=== PATIENT | female | born 1980 | race African-American/Black ===

== ENCOUNTER 2019-04-11 13:19 | Emergency (ER) | payer OTHER ==
[~2019-04-11] VITALS: Ht 170.2 cm; Wt 97.5 kg
[2019-04-11 13:35] VITALS: BP 146/77
[2019-04-11] MEDS ORDERED: IBUPROFEN 600 MG TABLET. PO ONE (14:30)
[2019-04-11] MEDS ORDERED: ORPH-16 PO (15:23)
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
== END 2019-04-11 15:32 | disposition home or self-care (01) ==
LOC: ER 13:19
DX: S39.012A Strain of muscle, fascia and tendon of lower back, initial encounter (principal); S80.11XA Contusion of right lower leg, initial encounter; V49.49XA Driver injured in collision with other motor vehicles in traffic accident, initial encounter; Y93.I9 Activity, other involving external motion; Y92.488 Other paved roadways as the place of occurrence of the external cause; Y99.8 Other external cause status
CPT/HCPCS: 73590; 99284

== ENCOUNTER → 2021-04-01 | Outpatient (CLI) | payer OTHER ==
[~2021-04-01] MED LIST: ORPH-16 PO
--- NOTE | 2021-04-02 12:12 | RAD ---
DATE: 04/01/2021 11:48 AM EXAM: MG BILAT SCREEN+ERYN HISTORY: No history provided COMPARISON: Baseline mammogram Bilateral CC and MLO views of the breasts were performed. Bilateral breast tomosynthesis was performe d in CC and MLO projections. This study was interpreted with the benefit of Computerized Aided Detection (CAD). FINDINGS: Breast Density: HETERO The breast parenchyma Is heterogeneously dense, which could reduce sensitivit y of mammography. Breast parenchyma level C Right breast: There is a focal asymmetry at the 6 to 7:00 position, middle depth. Additional focal as ymmetry at the 11 to 12:00 position, also at the middle depth. There are scattered benign-appearing v ascular calcifications. There is no evidence of suspicious architectural distortion. Left breast: Asymmetry appreciated on the CC projection (CC 3-D image 25/58). No suspicious mass, arc hitectural distortion, or suspicious calcifications. There is moderate amount of predominantly vascul ar calcifications demonstrated. IMPRESSION: 1. Right breast focal asymmetry at the 6-7:00 position, middle depth. Additional right breast focal a symmetry at the 11 to 12:00 position, middle depth. 2. Asymmetry within the subareolar breast, posterior depth appreciated on the CC projection 3-D image 25/58 BI-RADS CATEGORY: 0 INCOMPLETE: NEEDS ADDITIONAL IMAGING EVALUATION AND/OR PRIOR MAMMOGRAMS FOR JO RISON. RECOMMENDED FOLLOW-UP: ADD ADDITIONAL IMAGING. Recommend bilateral diagnostic mammograms with 3-D spo t compression views. Follow-up bilateral targeted breast ultrasound may also be performed. PQRS compliance statement: Patient information was entered into a reminder system with a target due d ate for the next mammogram. Mammography is a sensitive method for finding small breast cancers, but it does not detect them all a nd is not a substitute for careful clinical examination. A negative mammogram does not negate a clin ically suspicious finding and should not result in delay in biopsying a clinically suspicious abnorma lity. "Our facility is accredited by the [employer] Mammography Program." Electronically signed by: Tonio Coelho DO (04/02/2021 12:09 PM) [id number]
== END ==
LOC: MAMMO 10:12
PROVIDERS: ATTEND Internal Medicine
DX: Z12.31 Encounter for screening mammogram for malignant neoplasm of breast (principal)
CPT/HCPCS: 77063; 77067